=== PATIENT | male | born 1980 | race Caucasian/White ===

== ENCOUNTER 2023-12-27 09:02 | Emergency (ER) | payer OTHER, SELFPAY ==
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
[2023-12-27 09:08] VITALS: BP 142/87; PULSE 75; RESP 16; TEMP 36.4; O2SAT 100
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
[2023-12-27] MEDS: ACETAMINOPHEN 500 MG TABLET 1000 MG PO (09:48)
[2023-12-27] MEDS: CYCLOBENZAPRINE HCL 10 MG TABLET PO (09:48)
[2023-12-27 10:35] VITALS: BP 140/80; PULSE 75; RESP 16; O2SAT 100
== END 2023-12-27 10:36 | disposition home or self-care (01) ==
PROVIDERS: Emergency Provider Physician Assistant
DX: S16.1XXA Strain of muscle, fascia and tendon at neck level, initial encounter (principal); S29.019A Strain of muscle and tendon of unspecified wall of thorax, initial encounter; S46.911A Strain of unspecified muscle, fascia and tendon at shoulder and upper arm level, right arm, initial encounter; S20.212A Contusion of left front wall of thorax, initial encounter; V43.52XA Car driver injured in collision with other type car in traffic accident, initial encounter
CPT/HCPCS: 70450; 71250; 72125; 72128; 73030; 99284; A9270